=== PATIENT | male | born 1980 | race Caucasian/White ===

== ENCOUNTER → 2019-06-26 | Outpatient (CLI) | payer OTHER ==
[2019-06-26 16:38] LABS: CSF Tube Number 4
[2019-06-26 16:39] LABS: Appearance,CSF Clear; CSF Tube Volume 2.5; Nucleated Cells, CSF 2 u/L (0-5); Red Blood Cell,CSF 0 u/L (0-10)
[2019-06-26 16:46] LABS: Total Protein,CSF 64 mg/dL (12-60)
[2019-06-28 13:05] LABS: IgG - CSF 3.4 mg/dL (0.0 - 3.4); IgG/Albumin Index (CSF) 0.54 (0.00 - 0.77); Immunoglobulin G 849 mg/dL (700 - 1600)
== END | disposition home or self-care (01) ==
LOC: LABWHC1 07:18
PROVIDERS: ATTEND Physician Assistant
DX: R42 Dizziness and giddiness (principal); R90.82 White matter disease, unspecified
CPT/HCPCS: 36415; 82040; 82042; 82784; 83873; 83916; 84157; 87801; 88108; 89050